=== PATIENT | female | born 1965 | race Hispanic/Latino ===

== ENCOUNTER → 2017-04-01 | Outpatient (CLI) | payer OTHER ==
[~2017-04-01] VITALS: Ht 154.9 cm; Wt 95.7 kg
[~2017-04-01] MED LIST: BENADRYL25 MG PO; FLONASE16 G1 BOTH NARES; PREDNISONE10 MG PO; SINGULAIR10 MG PO; VENTOLIN HFA18 GM IH
[2017-04-01 14:13] LABS: HEMATOCRIT 42.5 % (36.0-46.0); MCH 28.1 PG (29.0-34.0); MCHC 32.2 G/DL (30.0-36.0); MCV 87.1 FL (83-99); MEAN PLAT.VOLUME 11.1 uM^3 (9.5-12.4); PLATELET COUNT 235 K/uL (156-360); RBC DIS.WIDTH-CV 13.8 % (11.8-14.6); RBC DIS.WIDTH-SD 44.2 % (39-53); RED BLOOD COUNT 4.88 M/uL (3.80-5.20)
[2017-04-01 14:19] LABS: PROTHROMBIN TIME 11.2 SEC (10.2-12.9)
[2017-04-01 14:21] LABS: PTT 30.1 SEC (25-37)
== END | disposition home or self-care (01) ==
LOC: AMB 13:39
PROVIDERS: Internal Medicine Pulmonary Disease
PROC: 0BJ08ZZ Inspection of Tracheobronchial Tree, Via Natural or Artificial Opening Endoscopic (ICD-10-PCS; principal; 2017-04-01)
DX: J98.09 Other diseases of bronchus, not elsewhere classified (principal); J98.11 Atelectasis; J45.909 Unspecified asthma, uncomplicated; R09.82 Postnasal drip
CPT/HCPCS: 85027; 85610; 85730; J0461; J2175; J2250; J2310; J2550; J3010